=== PATIENT | male | born 1965 | race African-American/Black ===

== ENCOUNTER 2025-04-23 15:17 | Emergency (ER) | payer OTHER ==
[~2025-04-23] VITALS: Ht 193 cm; Wt 113.6 kg
[2025-04-23 16:41] VITALS: BP 156/87; PULSE 77; RESP 18; TEMP 98.5; O2SAT 97
[2025-04-23] MEDS: IBUPROFEN 600 MG TABLET PO ONE (17:33)
== END 2025-04-23 20:24 ==
LOC: EMS 15:17
DX: S62.522A Displaced fracture of distal phalanx of left thumb, initial encounter for closed fracture (principal); S00.83XA Contusion of other part of head, initial encounter; I10 Essential (primary) hypertension; W22.8XXA Striking against or struck by other objects, initial encounter; Y93.89 Activity, other specified; Y92.89 Other specified places as the place of occurrence of the external cause; Y99.8 Other external cause status
CPT/HCPCS: 70450; 70486; 99284